=== PATIENT | male | born 1975 | race Caucasian/White ===

== ENCOUNTER 2020-09-20 13:03 | Emergency (ER) | payer OTHER ==
[2020-09-20 14:48] LABS: BASOPHIL 0.2 % (0-2); EOSINOPHIL 3.7 % (0-5); HCT 39.9 % (42.0-52.0); HGB 13.6 g/dl (13.2-18.0); LYMPHOCYTE 24.1 % (15-48); MCH 28.5 pg (25.0-31.0); MCHC 34.1 g/dL (32.0-36.0); MCV 83.5 fL (78.0-100.0); MONOCYTE 10.2 % (0-12); MPV 10.8 fL (6.0-9.5); NEUTROPHIL 61.6 % (41-80); NRBC 0; PLT 217 K/uL (150-400); RBC 4.78 M/uL (4.70-6.00); RDW 13.5 % (11.5-14.0); WBC 4.1 K/uL (4.0-10.5)
[2020-09-20 15:06] LABS: ALBUMIN 3.5 g/dL (3.4-5.0); BILIRUBIN - TOTAL 0.4 mg/dL (0.2-1.0); BUN/CREAT RATIO (CALC) 12.6 RATIO; CREATININE 0.87 mg/dL (0.67-1.17); GLOBULIN (CALCULATION) 5.7 g/dL; POTASSIUM 3.6 mmol/L (3.5-5.1); TOTAL PROTEIN 9.2 g/dL (6.4-8.2)
[2020-09-20] MEDS ORDERED: CEPHALEXIN500 MG PO (16:42)
== END 2020-09-20 16:59 | disposition home or self-care (01) ==
LOC: FER 13:03
PROVIDERS: Emergency Medicine
DX: S80.861A Insect bite (nonvenomous), right lower leg, initial encounter (principal); L03.116 Cellulitis of left lower limb; W57.XXXA Bitten or stung by nonvenomous insect and other nonvenomous arthropods, initial encounter
CPT/HCPCS: 36415; 80053; 85025